=== PATIENT | male | born 1965 | race Caucasian/White ===

== ENCOUNTER 2019-11-15 11:09 | Emergency (ER) | payer MEDICARE, MEDICAID, SELFPAY ==
[2019-11-15 11:25] VITALS: BP 128/79; PULSE 72; RESP 17; TEMP 36.8; O2SAT 97
[2019-11-15] MEDS: TETANUS,DIPHTHERIA,AC PERTUSSIS ADULT (0.5 ML) BOOSTRIX IM (12:01)
[2019-11-15] MEDS: ceFAZolin 2 GM/D5W 50 ML 2 GM/50 ML BAG IVPB (12:01)
[2019-11-15 12:02] LABS: Basophils Absolute Auto 0.1 K/mm3 (0.0-0.1); Basophils Percent Auto 0.7 % (0.2-1.2); Eosinophils Absolute Auto 0.2 K/mm3 (0-0.3); Hematocrit 44.1 % (42.0-52.0); Hemoglobin 14.7 g/dL (14.0-18.0); Immature Granulocyte Absolute 0.02 K/mm3 (0.00-0.031); Immature Granulocyte Percent A 0.2 % (0-0.5); Lymphocytes Percent Auto 20.4 % (18.3-44.2); Mean Corpuscular HGB Conc 33.3 g/dl (32-36); Mean Corpuscular Hemoglobin 30.1 pg (26-34); Mean Corpuscular Volume 90.2 fl (80-100); Mean Platelet Volume 10.8 fl (7.4-10.4); Monocytes Absolute Auto 0.6 K/mm3 (0.1-0.6); Monocytes Percent Auto 6.7 % (2.6-8.5); Neutrophils Absolute Auto 5.8 K/mm3 (1.3-6.7); Platelet Count Result 225 k/mm3 (150-375); Red Blood Count 4.89 M/mm3 (4.6-6.20); Red Cell Distribution Width 12.6 % (11.5-14.5); White Blood Count 8.3 K/mm3 (4.5-10.0)
[2019-11-15 12:14] LABS: Anion Gap 8 mmol/L (8-16); Blood Urea Nitrogen 11 mg/dL (9-20); Calcium 9.2 mg/dL (8.4-10.2); Carbon Dioxide 21 mmol/L (22-30); Chloride 107 mmol/L (98-107); Estimated CRCL calculation 72 ml/min; Estimated Glomerular Filt Rate > 60; Glucose 97 mg/dL (75-110); Potassium 4.5 mmol/L (3.4-5.0); Sodium 136 mmol/L (137-145)
--- NOTE | 2019-11-15 13:27 | ED.GENADULT ---
HPI - General Adult General Chief complaint: Wound/Laceration <Carson Diamond PA-C - Last Filed: 11/15/19 13:36> Stated complaint: finger injury/redness <Carson Diamond PA-C - Last Filed: 11/15/19 13:36> Time Seen by Provider: 11/15/19 11:39 <Carson Diamond PA-C - Last Filed: 11/15/19 13:36> Source: patient <Carson Diamond PA-C - Last Filed: 11/15/19 13:36> Mode of arrival: ambulatory <Carson Diamond PA-C - Last Filed: 11/15/19 13:36> Limitations: no limitations <Carson Diamond PA-C - Last Filed: 11/15/19 13:36> History of Present Illness HPI narrative: Patient is a 54-year-old male who presents to emergency department for evaluation of wound to the right index finger patient cut the finger on a piece of metal while working on an object in the basement patient notes that today he woke with some red streaking patient notes mild aching pain at the site of the cut which is at the PIP joint. Patient notes mild aching pain worse with activity and movement denies any decreased range of motion or strength red streaking extends up to the mid forearm <Carson Diamond PA-C - Last Filed: 11/15/19 13:36> Related Data Home medications: Home Medications Medication Instructions Recorded Confirmed aspirin 81 mg PO DAILY 11/15/19 lithium carbonate PO 11/15/19 metoprolol tartrate 11/15/19 <Carson Diamond PA-C - Last Filed: 11/15/19 13:36> Allergies/adverse reactions: Allergies Allergy/AdvReac Type Severity Reaction Status Date / Time risperidone Allergy Mild SYNCOPE Verified 11/15/19 11:32 DIPHENHYDRAMINE HCL Allergy Mild SYNCOPE Uncoded 11/15/19 11:32 <Carson Diamond PA-C - Last Filed: 11/15/19 13:36> Review of Systems Review of Systems: All systems reviewed & are unremarkable except as noted in HPI and below <Carson Diamond PA-C - Last Filed: 11/15/19 13:36> [facility] Social History Social History: Social History Gender identity (if verbalized by the patient): Male <Carson Diamond PA-C - Last Filed: 11/15/19 13:36> Exam Narrative: Exam Narrative: GENERAL: Well-appearing, well-nourished, and in no acute distress. HEAD: Normocephalic, atraumatic. EYES: PERRLA and EOMI. ENT: Nares clear, no rhinorrhea or epistaxis. Mucous membranes moist. EXTREMITIES: Normal range of motion. No edema. Patient with superficial linear half centimeter wound along the radial aspect of the right index finger at the PIP joint with lymphangitic streaking up to the mid forearm no drainage no fluctuance. Patient with normal range of motion and strength of the finger no circumferential swelling or redness. SKIN: Warm, dry, no rash. NEURO: No focal deficits. Alert and oriented x3. Neurovascularly intact. Capillary refill less than 2 seconds PSYCH: Normal mood and affect. <Carson Diamond PA-C - Last Filed: 11/15/19 13:36> Course Course Emergency Course: Patient in the room aware of case findings treatment plan and diagnosis given IV antibiotic and tetanus in the emergency department. <Carson Diamond PA-C - Last Filed: 11/15/19 13:36> Vital Signs Vital signs: Vital Signs Temperature 98.3 F 11/15/19 11:25 Pulse Rate 72 11/15/19 11:25 Respiratory Rate 17 11/15/19 11:25 Blood Pressure 128/79 11/15/19 11:25 Pulse Oximetry 97 11/15/19 11:25 Temperature 98.3 F 11/15/19 11:25 Pulse Rate 96 11/15/19 13:39 Respiratory Rate 17 11/15/19 13:39 Blood Pressure 132/74 11/15/19 13:39 Pulse Oximetry 100 11/15/19 13:39 <Carson Diamond PA-C - Last Filed: 11/15/19 13:36> Vital Signs Temperature 98.3 F 11/15/19 11:25 Pulse Rate 72 11/15/19 11:25 Respiratory Rate 17 11/15/19 11:25 Blood Pressure 128/79 11/15/19 11:25 Pulse Oximetry 97 11/15/19 11:25 Temperature 98.3 F 11/15/19 11:25 Pulse Rate 96 11/15/19 13:39 Respi
[2019-11-15 13:39] VITALS: BP 132/74; PULSE 96; RESP 17; O2SAT 100
== END 2019-11-15 14:07 | disposition home or self-care (01) ==
PROVIDERS: Emergency Medicine Emergency Medical Services; Emergency Provider Emergency Medicine
DX: L03.011 Cellulitis of right finger (principal); Z23 Encounter for immunization
CPT/HCPCS: 36415; 80048; 85025; 90471; 90715; 96365; 99284; J0690